=== PATIENT | male | born 1970 | race Caucasian/White ===

== ENCOUNTER 2021-11-08 12:35 | Inpatient (IN) | payer OTHER, SELFPAY ==
[2021-11-08 14:12] LABS: #Basophils 0.1 thou/uL (0.0-0.2); #Eosinphils 0.2 thou/uL (0.0-0.7); #Monocytes 1.1 thou/uL (0.11-0.59); #Neutrophils 11.9 thou/uL (1.40-6.50); %Basophils 0.4 % (0.0-1.0); %Eosinophils 1.2 % (0.0-10.0); %Lymphocytes 6.9 % (21.0-51.0); %Monocytes 8.1 % (0.0-10.0); %Neutrophils 83.4 % (42.0-75.0); Mean Corpuscular HGB CONC 31.7 g/dL (32.0-36.0); Mean Corpuscular Hemoglobin 28.8 pg (27.0-31.0); Mean Corpuscular Volume 90.8 fL (78.0-98.0); Mean Platelet Volume 7.6 fL (7.4-10.4); Platelet Count 391 thou/uL (130-400); RBC Distribution Width 17.1 % (11.5-14.5); White Blood Cell (WBC) Count 14.2 thou/uL (4.8-10.8)
[2021-11-08 14:31] LABS: ALT (SGPT) 13 U/L (8-55); AST (SGOT) 12 U/L (5-34); Albumin 4.1 g/dL (3.5-5.0); Alkaline Phosphatase 76 U/L (40-110); Anion Gap 13 mmol/L (10-20); BUN (Urea Nitrogen) 8 mg/dL (8.9-20.6); Bilirubin, Total 0.6 mg/dL (0.2-1.2); Calc. Creatinine Clearance 0 mL/min (70-130); Calcium 9.3 mg/dL (7.8-10.44); Carbon Dioxide 20 mmol/L (22-29); Chloride 105 mmol/L (98-107); Globulin 3.7 g/dL (2.4-3.5); Glucose 122 mg/dL (70-105); Potassium 4.2 mmol/L (3.5-5.1); Protein, Total 7.8 g/dL (6.0-8.3); Sodium 134 mmol/L (136-145)
[2021-11-08] MEDS ORDERED: Vancomycin 1 GM/200 ML BAG ONE (15:22)
[2021-11-08] MEDS ORDERED: Piperacillin/Tazobactam 3.375 GM VIAL ONE (15:22)
[2021-11-08] MEDS ORDERED: Ketorolac Tromethamine 30 MG/ML VIAL ONE ×2 (15:56→15:57)
[2021-11-08 16:02] LABS: Bacteria/HPF None Seen HPF (None Seen); Bilirubin Negative (Negative); Blood, Urine Negative (Negative); Clarity Clear (Clear); Glucose, Urine (Dipstick) Normal (Negative); Ketone, Urine Negative (Negative); Leukocyte 25 Leu/uL (Negative); Nitrite Negative (Negative); Protein, Urine (Dipstick) 10 mg/dL (Neg-Trace); Specific Gravity, Urine 1.023 (1.002-1.036); Squamous Epithelial None Seen HPF (0-3); WBC/HPF 0-3 HPF (0-3); pH, Urine 7.5 (5.0-9.0)
[2021-11-08] MEDS ORDERED: metroNIDAZOLE 500 MG in Premix Bag 1 BAG IVPB SCH (19:45)
[2021-11-08] MEDS ORDERED: Dextrose 50% Abboject 50 ML SYRINGE SLOW IVP PRN (21:49)
[2021-11-08] MEDS ORDERED: Promethazine HCl 25 MG/ML VIAL IM PRN (21:49)
[2021-11-08] MEDS ORDERED: Ondansetron PF 4 MG/2 ML Vial IVP PRN (21:49)
[2021-11-08] MEDS ORDERED: Morphine 4 MG/ML VIAL SLOW IVP PRN (21:49)
[2021-11-08] MEDS ORDERED: hydrALAZINE 20 MG/ML VIAL SLOW IVP PRN (21:49)
[2021-11-08] MEDS ORDERED: Dextrose 5% in Water 1,000 ML IV PRN (21:49)
[2021-11-08] MEDS ORDERED: Morphine 4 MG/ML VIAL ONE (21:52)
[2021-11-08 22:24] VITALS: BMI 23.6
[2021-11-08] MEDS: HYDROcodone/Acetaminophen 10/325 mg Tablet PO PRN (22:28)
[2021-11-08] MEDS ORDERED: Famotidine 20 MG TAB PO SCH (22:30)
[2021-11-08] MEDS ORDERED: Famotidine/PF 20 mg/2ml Vial SLOW IVP SCH (22:30)
[2021-11-08] MEDS ORDERED: GoLYTELY 4,000 ml Bottle PO SCH (22:30)
[2021-11-08 23:29] LABS: SARS-CoV-2 NAA Rapid Test Not Detected (NotDetected)
[2021-11-08] MEDS: D5 1/2 NS w/20 mEq KCL 1,000 ML IV SCH (23:35)
[2021-11-08] MEDS: Piperacillin/Tazobactam 3.375 GM in Sodium Chloride 0.9% 100 ML IVPB SCH (23:35)
[2021-11-09] MEDS: HYDROcodone/Acetaminophen 10/325 mg Tablet PO PRN (04:06)
[2021-11-09] MEDS: Piperacillin/Tazobactam 3.375 GM in Sodium Chloride 0.9% 100 ML IVPB SCH ×3 (07:34→21:54)
[2021-11-09] MEDS: D5 1/2 NS w/20 mEq KCL 1,000 ML IV SCH ×4 (07:35→20:50)
[2021-11-09] MEDS ORDERED: Fentanyl 100 MCG/2 ML VIAL ONE (08:50)
[2021-11-09] MEDS ORDERED: Midazolam HCl 2 mg/2 ml Vial ONE (08:50)
[2021-11-09] MEDS ORDERED: Famotidine/PF 20 mg/2ml Vial SLOW IVP SCH (09:00)
[2021-11-09] MEDS ORDERED: Famotidine 20 MG TAB PO SCH (09:00)
[2021-11-09] MEDS ORDERED: PROPOFOL 200 MG/20 ML VIAL ONE (09:54)
[2021-11-09] MEDS ORDERED: Rocuronium Bromide 10 MG/ML (10ML VIAL) ONE (09:54)
[2021-11-09] MEDS ORDERED: Dexamethasone 20 MG/5 ML VIAL ONE (09:54)
[2021-11-09] MEDS ORDERED: Ondansetron PF 4 MG/2 ML Vial ONE (09:54)
[2021-11-09] MEDS ORDERED: Glycopyrrolate 0.2 MG/ML 5 ML SYRINGE ONE (09:54)
[2021-11-09] MEDS ORDERED: Fentanyl 250 MCG/5 ML VIAL ONE (11:39)
[2021-11-09] MEDS ORDERED: Ondansetron PF 4 MG/2 ML Vial IVP PRN ×2 (12:00→12:21)
[2021-11-09] MEDS ORDERED: hydrALAZINE 20 MG/ML VIAL SLOW IVP PRN (12:00)
[2021-11-09] MEDS ORDERED: Promethazine HCl 25 MG/ML VIAL IM PRN ×3 (12:00→12:21)
[2021-11-09] MEDS ORDERED: Promethazine HCl 25 MG/ML VIAL ONE (12:01)
[2021-11-09] MEDS ORDERED: HYDROmorphone 2 MG/ML VIAL ONE (12:19)
[2021-11-09] MEDS ORDERED: Ondansetron HCl/PF 4 MG/2 ML Vial IVP PRN (12:21)
[2021-11-09] MEDS ORDERED: diphenhydrAMINE 50 MG/ML VIAL IM PRN (12:21)
[2021-11-09] MEDS ORDERED: Zolpidem Tartrate 5 MG TAB PO PRN (12:21)
[2021-11-09] MEDS ORDERED: Promethazine HCl 25 MG/ML VIAL IVPB PRN (12:21)
[2021-11-09] MEDS ORDERED: diphenhydrAMINE 25 MG CAP PO PRN (12:21)
[2021-11-09] MEDS ORDERED: HYDROmorphone 2 MG/ML VIAL SLOW IVP PRN (12:21)
[2021-11-09] MEDS ORDERED: diphenhydrAMINE 50 MG/ML VIAL IVP PRN (12:21)
[2021-11-09] MEDS ORDERED: Naloxone HCl 0.4 mg/ml Vial IV PRN (12:21)
[2021-11-09] MEDS ORDERED: PCA Communication Order-Pharmacy FS SCH (12:30)
[2021-11-09] MEDS: Famotidine/PF 20 mg/2ml Vial SLOW IVP SCH (19:34)
[2021-11-09] MEDS: Famotidine 20 MG TAB PO SCH (20:51)
[2021-11-10] MEDS: D5 1/2 NS w/20 mEq KCL 1,000 ML IV SCH ×3 (04:12→22:46)
[2021-11-10 05:17] LABS: #Lymphocytes 0.9 thou/uL (1.20-3.40); #Monocytes 1.1 thou/uL (0.11-0.59); %Basophils 0.1 % (0.0-1.0); %Eosinophils 0.1 % (0.0-10.0); %Lymphocytes 5.6 % (21.0-51.0); %Neutrophils 87.2 % (42.0-75.0); Mean Corpuscular HGB CONC 31.8 g/dL (32.0-36.0); Mean Corpuscular Hemoglobin 29.1 pg (27.0-31.0); Mean Corpuscular Volume 91.3 fL (78.0-98.0); Mean Platelet Volume 7.5 fL (7.4-10.4); Platelet Count 343 thou/uL (130-400); RBC Distribution Width 16.4 % (11.5-14.5); Red Blood Cell (RBC) Count 4.13 mill/uL (4.70-6.10); White Blood Cell (WBC) Count 16.1 thou/uL (4.8-10.8)
[2021-11-10 05:28] LABS: Anion Gap 12 mmol/L (10-20); BUN (Urea Nitrogen) 5 mg/dL (8.9-20.6); Calc. Creatinine Clearance 133 mL/min (70-130); Calcium 9.2 mg/dL (7.8-10.44); Carbon Dioxide 26 mmol/L (22-29); Chloride 104 mmol/L (98-107); Glucose 140 mg/dL (70-105); Potassium 4.5 mmol/L (3.5-5.1); Sodium 137 mmol/L (136-145)
[2021-11-10] MEDS: Piperacillin/Tazobactam 3.375 GM in Sodium Chloride 0.9% 100 ML IVPB SCH ×3 (05:29→22:46)
[2021-11-10] MEDS: HYDROmorphone 10 mg/100 ml CADD IVPB PRN ×2 (05:30→19:02)
[2021-11-10] MEDS: Famotidine 20 MG TAB PO SCH (08:55)
[2021-11-10] MEDS: Famotidine/PF 20 mg/2ml Vial SLOW IVP SCH (08:55)
[2021-11-10] MEDS ORDERED: Pantoprazole 40 MG VIAL IVP SCH (13:30)
[2021-11-11] MEDS: D5 1/2 NS w/20 mEq KCL 1,000 ML IV SCH ×3 (06:07→22:17)
[2021-11-11] MEDS: Piperacillin/Tazobactam 3.375 GM in Sodium Chloride 0.9% 100 ML IVPB SCH ×3 (06:07→22:12)
[2021-11-11] MEDS: HYDROmorphone 10 mg/100 ml CADD IVPB PRN ×2 (07:30→18:31)
[2021-11-11] MEDS: Pantoprazole 40 MG VIAL IVP SCH (08:46)
[2021-11-11 09:16] LABS: #Eosinphils 0.3 thou/uL (0.0-0.7); #Lymphocytes 1.1 thou/uL (1.20-3.40); #Monocytes 0.8 thou/uL (0.11-0.59); #Neutrophils 8.9 thou/uL (1.40-6.50); %Basophils 0.2 % (0.0-1.0); %Eosinophils 2.7 % (0.0-10.0); %Lymphocytes 9.9 % (21.0-51.0); %Monocytes 7.3 % (0.0-10.0); %Neutrophils 79.9 % (42.0-75.0); Hemoglobin 11.5 g/dL (14.0-18.0); Mean Corpuscular Hemoglobin 29.4 pg (27.0-31.0); Mean Corpuscular Volume 91.9 fL (78.0-98.0); Mean Platelet Volume 7.3 fL (7.4-10.4); Platelet Count 337 thou/uL (130-400); RBC Distribution Width 16.5 % (11.5-14.5); White Blood Cell (WBC) Count 11.2 thou/uL (4.8-10.8)
[2021-11-12] MEDS: Piperacillin/Tazobactam 3.375 GM in Sodium Chloride 0.9% 100 ML IVPB SCH (05:26)
[2021-11-12] MEDS: HYDROmorphone 10 mg/100 ml CADD IVPB PRN (05:27)
[2021-11-12] MEDS: D5 1/2 NS w/20 mEq KCL 1,000 ML IV SCH (05:27)
[2021-11-12] MEDS ORDERED: Morphine 2 MG/ML VIAL SLOW IVP PRN (06:23)
[2021-11-12] MEDS ORDERED: HYDROcodone/Acetaminophen 5/325 mg Tablet PO PRN (06:23)
[2021-11-12] MEDS ORDERED: Morphine 4 MG/ML VIAL SLOW IVP PRN (06:23)
[2021-11-12] MEDS: Pantoprazole 40 MG VIAL IVP SCH (09:30)
[2021-11-12] MEDS: Sulfameth/Trimethoprim DS 800-160mg TAB PO SCH ×2 (09:30→20:56)
[2021-11-12] MEDS ORDERED: Ketorolac Tromethamine 30 MG/ML VIAL ONE (19:23)
[2021-11-12] MEDS: HYDROcodone/Acetaminophen 5/325 mg Tablet PO PRN ×2 (19:27→23:30)
[2021-11-13] MEDS: HYDROcodone/Acetaminophen 5/325 mg Tablet PO PRN ×3 (04:34→12:01)
[2021-11-13] MEDS: Sulfameth/Trimethoprim DS 800-160mg TAB PO SCH (08:36)
[2021-11-13] MEDS: Pantoprazole 40 MG VIAL IVP SCH (08:36)
[2021-11-13 09:19] VITALS: BP 140/87; TEMP 98.7
== END 2021-11-13 14:42 | disposition home or self-care (01) | DRG 329 ==
LOC: ERS 12:35 → SURG A 20:15 → OBSVTOIN 20:15
PROVIDERS: ADMIT Surgery; ATTEND Surgery
PROC: 0DBN0ZZ Excision of Sigmoid Colon, Open Approach (ICD-10-PCS; principal; 2021-11-09)
PROC: 0D1B0Z4 Bypass Ileum to Cutaneous, Open Approach (ICD-10-PCS; 2021-11-09)
DX: K57.20 Diverticulitis of large intestine with perforation and abscess without bleeding (principal); K65.1 Peritoneal abscess; K63.2 Fistula of intestine; L02.211 Cutaneous abscess of abdominal wall; K21.9 Gastro-esophageal reflux disease without esophagitis; Z20.822 Contact with and (suspected) exposure to COVID-19; F10.10 Alcohol abuse, uncomplicated
CPT/HCPCS: 36415; 36416; 71045; 74177; 80048; 80053; 81003; 81015; 83605; 85025; 87040; 87070; 87077; 87186; 87205; 88307; 96365; 96366; 96367; 96375; A4649; C1776; C9113; G0378; J1100; J1170; J1200; J1885; J2250; J2270; J2405; J2543; J2550; J2704; J3010; J3370; J3480; J3490; S0028; U0002

== ENCOUNTER 2021-12-14 10:28 | Outpatient (CLI) | payer OTHER | END 2021-12-14 10:29 | disposition home or self-care (01) | LOC: RAD 10:28 | PROVIDERS: ATTEND Surgery | DX: Z43.2 Encounter for attention to ileostomy (principal) | CPT/HCPCS: 74280 ==

== ENCOUNTER 2021-12-25 11:48 | Outpatient (CLI) | payer OTHER ==
[2021-12-25 13:51] LABS: Anion Gap 16 mmol/L (10-20); BUN (Urea Nitrogen) 12 mg/dL (8.9-20.6); Calc. Creatinine Clearance 0 mL/min (70-130); Calcium 9.9 mg/dL (7.8-10.44); Carbon Dioxide 26 mmol/L (22-29); Chloride 102 mmol/L (98-107); Glucose 165 mg/dL (70-105); Potassium 4.6 mmol/L (3.5-5.1); Sodium 139 mmol/L (136-145)
== END 2021-12-25 11:49 | disposition home or self-care (01) ==
LOC: LABBT 11:48
PROVIDERS: ATTEND Surgery
DX: Z01.812 Encounter for preprocedural laboratory examination (principal); K57.12 Diverticulitis of small intestine without perforation or abscess without bleeding; Z20.822 Contact with and (suspected) exposure to COVID-19
CPT/HCPCS: 80048; U0003; U0005

== ENCOUNTER 2021-12-25 12:00 | Inpatient (IN) | payer OTHER ==
[2021-12-28] MEDS ORDERED: fentaNYL Citrate/PF 100 MCG/2 ML SYRINGE ONE (06:57)
[2021-12-28] MEDS ORDERED: Famotidine/PF 20 mg/2ml Vial ONE (07:22)
[2021-12-28] MEDS ORDERED: Midazolam HCl 2 mg/2 ml Vial ONE (07:22)
[2021-12-28] MEDS ORDERED: CEFAZOLIN 2 GM VIAL ONE (07:25)
[2021-12-28] MEDS ORDERED: Sodium Chloride 0.9% 100 ML ONE (07:25)
[2021-12-28] MEDS ORDERED: Ketorolac Tromethamine 30 MG/ML VIAL ONE (07:40)
[2021-12-28] MEDS ORDERED: Dexamethasone 20 MG/5 ML VIAL ONE (07:40)
[2021-12-28] MEDS ORDERED: Rocuronium Bromide 10 MG/ML (10ML VIAL) ONE (07:40)
[2021-12-28] MEDS ORDERED: Glycopyrrolate 0.2 MG/ML 5 ML SYRINGE ONE (07:40)
[2021-12-28] MEDS ORDERED: Ondansetron PF 4 MG/2 ML Vial ONE (07:40)
[2021-12-28] MEDS ORDERED: PROPOFOL 200 MG/20 ML VIAL ONE (07:40)
[2021-12-28] MEDS ORDERED: Lidocaine 1% PF 5 ML VIAL ONE (07:40)
[2021-12-28] MEDS ORDERED: Bupivacaine 0.25% HCL 30 ML VIAL ONE (07:41)
[2021-12-28] MEDS ORDERED: Lidocaine 1% w/Epinephrine 1:100K 20 ML VIAL ONE (07:41)
[2021-12-28] MEDS ORDERED: hydrALAZINE 20 MG/ML VIAL SLOW IVP PRN (08:37)
[2021-12-28] MEDS ORDERED: Ondansetron PF 4 MG/2 ML Vial IVP PRN (08:37)
[2021-12-28] MEDS ORDERED: Dextrose 50% Abboject 50 ML SYRINGE SLOW IVP PRN (08:37)
[2021-12-28] MEDS ORDERED: Morphine 4 MG/ML VIAL SLOW IVP PRN (08:37)
[2021-12-28] MEDS ORDERED: Dextrose 5% in Water 1,000 ML IV PRN (08:37)
[2021-12-28] MEDS ORDERED: Acetaminophen 325 MG TAB PO PRN (08:37)
[2021-12-28] MEDS ORDERED: Pseudoephedrine HCl 30 MG TAB PO PRN (08:37)
[2021-12-28] MEDS ORDERED: Promethazine HCl 25 MG/ML VIAL IM PRN ×2 (08:37→08:47)
[2021-12-28] MEDS ORDERED: Ondansetron HCl/PF 4 MG/2 ML Vial IVP PRN (08:47)
[2021-12-28] MEDS ORDERED: Promethazine HCl 25 MG/ML VIAL IVPB PRN (08:47)
[2021-12-28] MEDS ORDERED: Fentanyl 100 MCG/2 ML VIAL ONE ×2 (08:57→10:30)
[2021-12-28] MEDS ORDERED: HYDROmorphone 2 MG/ML VIAL ONE (09:11)
[2021-12-28 11:26] VITALS: BMI 22.3
[2021-12-28] MEDS: Famotidine 20 MG TAB PO SCH ×2 (11:55→21:00)
[2021-12-28] MEDS: HYDROcodone/Acetaminophen 10/325 mg Tablet PO PRN ×3 (11:55→22:53)
[2021-12-28] MEDS: D5 1/2 NS w/20 mEq KCL 1,000 ML IV SCH ×2 (11:55→22:53)
[2021-12-28] MEDS: Famotidine/PF 20 mg/2ml Vial SLOW IVP SCH ×2 (11:56→20:48)
[2021-12-29] MEDS: HYDROcodone/Acetaminophen 10/325 mg Tablet PO PRN ×3 (04:00→12:30)
[2021-12-29] MEDS: Famotidine/PF 20 mg/2ml Vial SLOW IVP SCH (08:04)
[2021-12-29] MEDS: Famotidine 20 MG TAB PO SCH (10:41)
[2021-12-29 11:31] VITALS: BP 128/76; TEMP 97.8
== END 2021-12-29 12:52 | disposition home or self-care (01) | DRG 331 ==
LOC: SURG A 12-28 05:50 → SURG B 12-28 11:47
PROVIDERS: ADMIT Surgery; ATTEND Surgery
PROC: 0DBB0ZZ Excision of Ileum, Open Approach (ICD-10-PCS; principal; 2021-12-28)
DX: Z43.2 Encounter for attention to ileostomy (principal); Z20.822 Contact with and (suspected) exposure to COVID-19; Z87.19 Personal history of other diseases of the digestive system; Z79.899 Other long term (current) drug therapy; Z98.890 Other specified postprocedural states; Z90.49 Acquired absence of other specified parts of digestive tract; Z82.3 Family history of stroke; Z82.49 Family history of ischemic heart disease and other diseases of the circulatory system; Z80.9 Family history of malignant neoplasm, unspecified
CPT/HCPCS: J0690; J1100; J1170; J1885; J2250; J2405; J2550; J2704; J3010; J3480; J3490; S0020; S0028

== ENCOUNTER 2022-02-08 12:21 | Outpatient (CLI) | payer OTHER ==
[~2022-02-08 12:21] MED LIST: Iopamidol-370 76% 500 ML 1 ML ONE
== END 2022-02-08 12:22 | disposition home or self-care (01) ==
LOC: BICCT 12:21
PROVIDERS: ATTEND Surgery
DX: K65.1 Peritoneal abscess (principal); K86.2 Cyst of pancreas
CPT/HCPCS: 74177; Q9967

== ENCOUNTER 2022-03-16 09:20 | Day surgery (SDC) | payer OTHER ==
[2022-03-16] MEDS ORDERED: Iopamidol 370 76% 100 ML VIAL ONE (09:43)
[2022-03-16 09:48] LABS: #Eosinphils 0.4 thou/uL (0.0-0.7); #Lymphocytes 2.2 thou/uL (1.20-3.40); #Monocytes 0.5 thou/uL (0.11-0.59); #Neutrophils 6.1 thou/uL (1.40-6.50); %Basophils 0.1 % (0.0-1.0); %Eosinophils 4.6 % (0.0-10.0); %Lymphocytes 23.7 % (21.0-51.0); %Monocytes 5.8 % (0.0-10.0); %Neutrophils 65.7 % (42.0-75.0); Mean Corpuscular HGB CONC 30.6 g/dL (32.0-36.0); Mean Corpuscular Volume 88.1 fL (78.0-98.0); Mean Platelet Volume 6.9 fL (7.4-10.4); Platelet Count 504 thou/uL (130-400); RBC Distribution Width 14.5 % (11.5-14.5); Red Blood Cell (RBC) Count 4.83 mill/uL (4.70-6.10); White Blood Cell (WBC) Count 9.2 thou/uL (4.8-10.8)
[2022-03-16 10:16] LABS: INR-International Normal Ratio 0.9; Prothrombin Time 12.6 sec (12.0-14.7)
[2022-03-16 10:17] LABS: PTT 34.1 sec (22.9-36.1)
[2022-03-16 10:32] VITALS: BP 130/92; TEMP 97.7; BMI 22.9
== END 2022-03-16 12:00 | disposition home or self-care (01) ==
LOC: CT 09:20
PROVIDERS: ATTEND Surgery
DX: K65.1 Peritoneal abscess (principal); K86.2 Cyst of pancreas; Z91.048 Other nonmedicinal substance allergy status
CPT/HCPCS: 36415; 74177; 85025; 85610; 85730; Q9967

== ENCOUNTER 2022-09-05 13:16 | Outpatient (CLI) | payer OTHER ==
[2022-09-05 13:58] LABS: #Basophils 0.1 10x3/uL (0.0-0.2); #Eosinphils 0.1 10x3/uL (0.0-0.5); #Monocytes 0.7 10x3/uL (0.0-1.1); #Neutrophils 14.8 10x3/uL (1.5-8.4); %Basophils 0.5 % (0.0-2.0); %Eosinophils 0.8 % (0.0-6.0); %Lymphocytes 9.3 % (18.0-47.0); %Monocytes 4.2 % (0.0-10.0); %Neutrophils 84.7 % (40.0-75.0); Hemoglobin 14.8 g/dL (13.5-17.5); Mean Corpuscular HGB CONC 31.9 g/dL (32.0-36.0); Mean Corpuscular Hemoglobin 28.1 pg (27.0-33.0); Platelet Count 377 10x3/uL (150-450); RBC Distribution Width 14.6 % (11.5-14.5); Red Blood Cell (RBC) Count 5.27 10x6/uL (4.32-5.72); White Blood Cell (WBC) Count 17.5 10x3/uL (3.5-10.5)
[2022-09-05 14:10] LABS: Anion Gap 16 mmol/L (10-20); BUN (Urea Nitrogen) 9 mg/dL (8.9-20.6); Calc. Creatinine Clearance 0 mL/min (70-130); Calcium 9.5 mg/dL (7.8-10.44); Carbon Dioxide 23 mmol/L (22-29); Chloride 103 mmol/L (98-107); Estimated GFR 96; Glucose 224 mg/dL (70-105); Potassium 4.8 mmol/L (3.5-5.1); Sodium 137 mmol/L (136-145)
== END 2022-09-05 13:17 | disposition home or self-care (01) ==
LOC: LABBT 13:16
PROVIDERS: ATTEND Surgery
DX: Z01.812 Encounter for preprocedural laboratory examination (principal); K43.2 Incisional hernia without obstruction or gangrene
CPT/HCPCS: 80048; 85025

== ENCOUNTER 2022-09-11 05:46 | Day surgery (SDC) | payer OTHER ==
[2022-09-07 13:05] VITALS: BMI 25.1
[2022-09-11] MEDS ORDERED: fentaNYL PF 100 MCG/2 ML SYRINGE ONE (06:15)
[2022-09-11] MEDS ORDERED: SUGAMMADEX SODIUM 200 MG/2 ML VIAL ONE (06:16)
[2022-09-11] MEDS ORDERED: Dexmedetomidine 200 MCG/2 ML VIAL ONE (06:16)
[2022-09-11] MEDS ORDERED: Bupivacaine/Epinephrine 0.25% 30 ML VIAL ONE (06:58)
[2022-09-11] MEDS ORDERED: Famotidine/PF 20 mg/2ml Vial ONE (07:17)
[2022-09-11] MEDS ORDERED: Midazolam HCl 2 mg/2 ml Vial ONE (07:17)
[2022-09-11] MEDS ORDERED: CEFAZOLIN 2 GM VIAL ONE (07:30)
[2022-09-11] MEDS ORDERED: Sodium Chloride 0.9% 100 ML ONE (07:30)
[2022-09-11] MEDS ORDERED: PROPOFOL 200 MG/20 ML VIAL ONE (08:26)
[2022-09-11] MEDS ORDERED: Glycopyrrolate 0.2 MG/ML 5 ML SYRINGE ONE (08:26)
[2022-09-11] MEDS ORDERED: Dexamethasone 20 MG/5 ML VIAL ONE (08:26)
[2022-09-11] MEDS ORDERED: Ondansetron PF 4 MG/2 ML Vial ONE (08:26)
[2022-09-11] MEDS ORDERED: Rocuronium Bromide 10 MG/ML (10ML VIAL) ONE (08:26)
[2022-09-11] MEDS ORDERED: NEOSTIGMINE 3 MG/3 ML SYR 3 MG/3 ML SYRINGE ONE (08:26)
[2022-09-11] MEDS ORDERED: Ketorolac Tromethamine 30 MG/ML VIAL ONE (08:26)
[2022-09-11] MEDS ORDERED: Lidocaine 1% PF 5 ML VIAL ONE (08:26)
[2022-09-11] MEDS ORDERED: Fentanyl 100 MCG/2 ML VIAL ONE (10:08)
[2022-09-11] MEDS ORDERED: HYDROcodone/Acetaminophen 5/325 mg Tablet ONE (10:53)
== END 2022-09-11 11:24 | disposition home or self-care (01) ==
LOC: SDC 05:46
PROVIDERS: ATTEND Surgery
PROC: 8E0W4CZ Robotic Assisted Procedure of Trunk Region, Percutaneous Endoscopic Approach (ICD-10-PCS; principal; 2022-09-11)
PROC: 0WUF4JZ Supplement Abdominal Wall with Synthetic Substitute, Percutaneous Endoscopic Approach (ICD-10-PCS; principal; 2022-09-11)
DX: K43.2 Incisional hernia without obstruction or gangrene (principal); K66.0 Peritoneal adhesions (postprocedural) (postinfection); F17.210 Nicotine dependence, cigarettes, uncomplicated; Z91.048 Other nonmedicinal substance allergy status
CPT/HCPCS: C1781; J1100; J1885; J2250; J2405; J2704; J3010; J3490; S0028